=== PATIENT | male | born 1980 | race American Indian/Alaskan Native ===

== ENCOUNTER 2016-12-31 14:24 | Observation (INO) | payer OTHER ==
[2016-12-31 14:48] VITALS: RESP 20
[2016-12-31 15:19] LABS: BASO # 0.1 K/uL (0.0-0.2); BASO % 0.5 % (0.0-2.0); EOS # 0.3 K/uL (0.0-0.7); EOS % 2.1 % (0.0-4.0); HEMATOCRIT 39.3 % (35.0-51.0); LYMPH # 2.2 K/uL (1.0-4.3); LYMPH % 15.5 % (20.0-40.0); MEAN CELL VOLUME 74.4 fL (80.0-94.0); MEAN CORPUSCULAR HEMOGLOBIN 23.4 pg (27.0-31.0); MEAN CORPUSCULAR HGB CONC 31.4 g/dL (33.0-37.0); MEAN PLATELET VOLUME 8.4 fL (7.2-11.7); MONO # 0.8 K/uL (0.0-0.8); MONO % 5.4 % (0.0-10.0); RED CELL DISTRIBUTION WIDTH 14.6 % (11.5-14.5); WHITE BLOOD COUNT 14.4 K/uL (4.8-10.8)
[2016-12-31 15:26] LABS: CHLORIDE 96 mmol/L (98-107)
[2016-12-31 15:27] LABS: POTASSIUM 3.8 mmol/L (3.6-5.2); SODIUM 138 mmol/L (132-148)
[2016-12-31 15:28] LABS: INR 1.1
[2016-12-31 15:29] LABS: ALB/GLOB RATIO 1.2 (1.0-2.1); AST/SGOT 43 U/L (17-59); BILIRUBIN,TOTAL 0.6 mg/dL (0.2-1.3); BLOOD UREA NITROGEN 15 mg/dL (9-20); CARBON DIOXIDE 28 mmol/L (22-30); GFR AFRICAN-AMERICAN > 60
[2016-12-31 15:30] LABS: ALKALINE PHOSPHATASE 69 U/L (38-126); ALT/SGPT 53 U/L (21-72); CALCIUM 9.1 mg/dl (8.6-10.4); GLUCOSE,RANDOM 106 mg/dL (75-110)
--- NOTE | 2016-12-31 15:38 | C.PDOC ---
History Of Present Illness 36-year-old male, presents to the emergency department with complaints of dizziness that is described as room spinning. Patient notes associated "eye twitching" that started this morning. Patient denies fevers, nausea/vomiting, shortness of breath, numbness/weakness, visual change, change in speech, or any other associated symptoms. No other complaints at this time. Time Seen by Provider: 12/31/16 14:40 Chief Complaint (Nursing): Dizziness/Lightheaded History Per: Patient History/Exam Limitations: no limitations Onset/Duration Of Symptoms: Hrs Current Symptoms Are (Timing): Still Present Past Medical History Reviewed: Historical Data, Nursing Documentation, Vital Signs Vital Signs: Last Vital Signs Temp 98.3 F 01/01/17 08:05 Pulse 69 01/01/17 08:05 Resp 20 01/01/17 08:05 BP 109/68 01/01/17 08:05 Pulse Ox 95 01/01/17 08:05 Family History: States: Unknown Family Hx - Social History Hx Tobacco Use: Yes Hx Alcohol Use: No Hx Substance Use: No - Immunization History Hx Tetanus Toxoid Vaccination: No Hx Influenza Vaccination: No Hx Pneumococcal Vaccination: No Review Of Systems Except As Marked, All Systems Reviewed And Found Negative. Constitutional: Negative for: Fever, Chills Cardiovascular: Negative for: Palpitations Respiratory: Negative for: Shortness of Breath Gastrointestinal: Negative for: Nausea, Vomiting Musculoskeletal: Negative for: Neck Pain, Back Pain Skin: Negative for: Rash Neurological: Positive for: Dizziness. Negative for: Weakness, Numbness, Incoordination, Change in Speech, Altered Mental Status Physical Exam - Physical Exam Appears: Non-toxic, No Acute Distress Skin: Warm, Dry, No Rash Head: Atraumatic, Normacephalic Eye(s): bilateral: Normal Inspection, Other (HORIZONTAL NYSTAGMUS) Nose: Normal Oral Mucosa: Moist Lips: Normal Appearing Neck: Normal ROM Cardiovascular: Rhythm Regular Respiratory: Normal Breath Sounds, No Accessory Muscle Use Extremity: Normal ROM Neurological/Psych: Oriented x3, Normal Speech, Normal Cognition, Normal Cranial Nerves, No Cerebellar Signs, Normal Motor, Normal Sensation, Other (neg finger to nose) ED Course And Treatment - Laboratory Results Result Diagrams: 12/31/16 15:12 12/31/16 15:12 O2 Sat by Pulse Oximetry: 98 Medical Decision Making Medical Decision Making: pt with dizziness. suspected peripheral vertigo- labs, meclzine 540: pt initially reported resolving symptoms but upon d/c, pt states again persistent. pt states " feels unwell to go home"ct head added. 645: pt reassessed. again stating feels unwell for d/c. head ct neg. discussed with dr trejo. accepted for obs. Disposition - Disposition Disposition: HOME/ ROUTINE Disposition Time: 17:13 Condition: STABLE - Clinical Impression Clinical Impression: Dizziness - Scribe Statement The provider has reviewed the documentation as recorded by the Jenniferibmorris Teran All medical record entries made by the Jenniferibmorris were at my direction and personally dictated by me. I have reviewed the chart and agree that the record accurately reflects my personal performance of the history, physical exam, medical decision making, and the department course for this patient. I have also personally directed, reviewed, and agree with the discharge instructions and disposition.
--- NOTE | 2016-12-31 16:06 | RAD ---
HISTORY: dizziness/weakness COMPARISON: None available TECHNIQUE: Chest, one view. FINDINGS: Examination limited by habitus and patient obliquity. LUNGS: No focal consolidation. Please note that chest x-ray has limited sensitivity for the detection of pulmonary masses. PLEURA: No significant pleural effusion identified. No definite pneumothorax . CARDIOVASCULAR: Heart size appears top normal. OSSEOUS STRUCTURES: No acute osseous abnormality identified. VISUALIZED UPPER ABDOMEN: Elevation of the right hemidiaphragm. OTHER FINDINGS: None. IMPRESSION: No focal consolidation, significant pleural effusion, or definite pneumothorax identified.
[2016-12-31 16:28] LABS: RBC URINE 1 /hpf (0-3); URINE BACTERIA RARE (<OCC); URINE BILIRUBIN NEGATIVE (NEGATIVE); URINE BLOOD NEGATIVE (NEGATIVE); URINE COLOR Yellow (YELLOW); URINE GLUCOSE (UA) NORMAL (Normal); URINE KETONE NEGATIVE (NEGATIVE); URINE LEUKOCYTE ESTERASE NEG Leu/uL (Negative); URINE PROTEIN NEGATIVE (NEGATIVE); URINE UROBILINOGEN NORMAL mg/dL (0.2-1.0); WBC URINE 1 /hpf (0-5)
[2016-12-31] MEDS ORDERED: Sodium Chloride 0.9% 1,000 ML IV ONE (18:24)
[2016-12-31] MEDS ORDERED: Sodium Chloride 0.9% 1,000 ML ONE (18:29)
--- NOTE | 2016-12-31 18:34 | CT ---
PROCEDURE: CT HEAD WITHOUT CONTRAST. HISTORY: dizziness COMPARISON: None available. TECHNIQUE: Axial computed tomography images were obtained through the head/brain without intravenous contrast. Radiation dose: Total exam DLP = 860 mGy-cm. FINDINGS: HEMORRHAGE: No intracranial hemorrhage. BRAIN: No mass effect or edema. No atrophy or chronic microvascular ischemic changes. VENTRICLES: Unremarkable. No hydrocephalus. CALVARIUM: Unremarkable. PARANASAL SINUSES: Unremarkable as visualized. No significant inflammatory changes. MASTOID AIR CELLS: Unremarkable as visualized. No inflammatory changes. OTHER FINDINGS: None. IMPRESSION: No acute findings
--- NOTE | 2016-12-31 21:10 | CP.PCM.HP ---
<Lina Schulz - Last Filed: 12/31/16 22:11> History of Present Illness - History of Present Illness History of Present Illness: CC: "Dizziness, vomiting" HPI: Pt is a 36M with no prior medical history who presents to the ED with episode of dizziness when he awoke at noon today. 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 Patient went to sleep but still felt dizzy upon awakening and described that the room felt as if it were spinning. He tried drinking water but vomited. Patient states he was able to eat meals without issue the night prior. He denies tinnitus, headache, blurry vision, nasal congestion, sinus pressure, gait disturbance, fever, chills, chest pain, palpitations, diaphoresis , abdominal pain, diarrhea, constipation and urinary symptoms. Patient states after he was given zofran and meclizine in the emergency department he became extremely fatigued and slept for several hours. During examination, patient started to have repeated episodes of yellow colored emesis. PMD: none PMH: none Medications: none Allergies: NKDA Family History: not pertinent Surgical History: denies Social: Admits to smoking 2-3 cigarettes daily for numerous years - will not quantify. Denies alcohol use. Admits to marijuana use. Present on Admission - Present on Admission Any Indicators Present on Admission: No History of DVT/PE: No History of Uncontrolled Diabetes: No Urinary Catheter: No Decubitus Ulcer Present: No Review of Systems - Constitutional Constitutional: absent: Chills, Fever, Headache, Weight Loss, Weakness - EENT Eyes: absent: Blurred Vision, Change in Vision Ears: Dizziness. absent: Decreased Hearing, Tinnitus, Abnormal Hearing, Disequilibrium Nose/Mouth/Throat: absent: Nasal Congestion, Nasal Discharge, Nasal Trauma, Sinus Pain, Sinus Pressure - Cardiovascular Cardiovascular: absent: Chest Pain, Dyspnea, Dyspnea on Exertion, Leg Edema, Palpitations, Syncope - Respiratory Respiratory: absent: Cough, Dyspnea on Exertion, Wheezing - Gastrointestinal Gastrointestinal: Nausea, Vomiting. absent: Abdominal Pain, Coffee Ground Emesis, Constipation, Diarrhea, Hematemesis - Genitourinary Genitourinary: absent: Change in Urinary Stream, Difficulty Urinating - Musculoskeletal Musculoskeletal: absent: Arthralgias, Back Pain - Integumentary Integumentary: absent: New Lesions, Rash - Neurological Neurological: Dizziness. absent: Disequilibrium, Headaches, Syncope, Tingling - Psychiatric Psychiatric: absent: Anxiety Past Patient History - Past Social History Smoking Status: Never Smoked - PSYCHIATRIC Hx Substance Use: No Meds Home Medications: Home Medication List Medication Instructions Recorded Confirmed Type Meclizine [Antivert] 25 mg PO Q6 PRN #30 tab 12/31/16 Rx Allergies/Adverse Reactions: Allergies Allergy/AdvReac Type Severity Reaction Status Date / Time No Known Allergies Allergy Unverified 09/05/13 09:18 Physical Exam - Constitutional Appears: Non-toxic, No Acute Distress - Head Exam Head Exam: ATRAUMATIC, NORMAL INSPECTION, NORMOCEPHALIC - Eye Exam Eye Exam: EOMI, Normal appearance, PERRL - ENT Exam ENT Exam: Mucous Membranes Dry, Normal External Ear Exam, TM's Normal Bilaterally - Neck Exam Neck exam: Positive for: Full Rom, Normal Inspection - Respiratory Exam Respiratory Exam: Clear to Auscultation Bilateral, NORMAL BREATHING PATTERN. absent: Rales, Rhonchi, Wheezes - Cardiovascular Exam Cardiovascular Exam: +S1, +S2. absent: Bradycardia, Tachycardia, Diastolic murmur, Systolic Murmur - GI/Abdominal Exam GI & Abdominal Exam: Normal Bowel Sounds, Soft. absent: Tenderness - Extremities Exam Extremities exam: Positive for: normal inspection, pedal pulses present. Negative for: pedal edema, tenderness - Neurological Exam Neurological exam: Alert, CN II-XII Intact, Oriented x3 - Psychiatric Exam Psychiatric exam: Normal Affect, Normal Mood - Skin Skin Exam: Normal Color, Warm Results - Vital Signs Recent Vital Signs: Last Vital Signs Temp 98.7 F 12/31/16 20:35 Pulse 68 12/31/16 20:35 Resp 20 12/31/16 20:35 BP 124/70 12/31/16 20:35 Pulse Ox 96 12/31/16 20:35 - Labs Result Diagrams: 12/31/16 15:12 12/31/16 15:12 Assessment & Plan - Assessment and Plan (Free Text) Assessment: 1. Gastroenteritis IV fluids @100cc NPO overnight, advance diet as tolerated Zofran 4 mg IVP Q6H PRN for nausea f/u lipase, amylase f/u CMP, magnesium, phosphorus 2. Vertigo likely secondary to gastroenteritis Currently denies symptoms. Will give Meclizine if needed. Monitor 3. Leukocytosis WBC 14.4 CXR- no infiltrates, no active pulmonary disease UA - negative f/u Blood cx Monitor 4. Prophylaxis SCD Pepcid 20 mg po daily - Date & Time Date: 12/31/16 Time: 22:35 <Young Pagan - Last Filed: 01/01/17 06:24> Results - Vital Signs Recent Vital Signs: Last Vital Signs Temp 98.1 F 12/31/16 23:31 Pulse 65 01/01/17 00:55 Resp 20 12/31/16 23:31 BP 123/76 12/31/16 23:31 Pulse Ox 97 12/31/16 23:31 - Labs Result Diagrams: 12/31/16 15:12 12/31/16 15:12 Labs: Laboratory Results - last 24 hr 01/01/17 05:54 Urine Opiates Screen Negative Urine Methadone Screen Negative Ur Barbiturates Screen Negative Ur Phencyclidine Scrn Negative Ur Amphetamines Screen Negative U Benzodiazepines Scrn Negative U Oth Cocaine Metabols Negative Assessment & Plan - Date & Time Date: 01/01/17 (I have seen and examined the patient. I agree with the findings and plan of care as documented by Dr. Schulz. Patient with gastroenteritis. Symptomatic treatment. Also with vertigo. Fall precautions. Meclizine. Monitor for acute changes.) Time: 06:22 Attending/Attestation - Attestation I have personally seen and examined this patient.: Yes I have fully participated in the care of the patient.: Yes I have reviewed all pertinent clinical information: Yes
[2016-12-31] MEDS: Sodium Chloride 0.9% 1,000 ML IV SCH (21:30)
[2017-01-01] MEDS: Sodium Chloride 0.9% 1,000 ML IV SCH ×4 (05:51→22:18)
[2017-01-01 08:41] LABS: BASO # 0.1 K/uL (0.0-0.2); BASO % 0.8 % (0.0-2.0); EOS # 0.2 K/uL (0.0-0.7); EOS % 1.3 % (0.0-4.0); HEMATOCRIT 36.2 % (35.0-51.0); LYMPH # 2.8 K/uL (1.0-4.3); LYMPH % 21.6 % (20.0-40.0); MEAN CORPUSCULAR HEMOGLOBIN 23.3 pg (27.0-31.0); MEAN CORPUSCULAR HGB CONC 31.5 g/dL (33.0-37.0); MEAN PLATELET VOLUME 7.9 fL (7.2-11.7); MONO # 0.9 K/uL (0.0-0.8); MONO % 7.2 % (0.0-10.0); NRBC % 0.1 % (0.0-2.0); RED CELL DISTRIBUTION WIDTH 14.5 % (11.5-14.5)
--- NOTE | 2017-01-01 08:54 | CP.PCM.PN ---
Subjective - Date & Time of Evaluation Date of Evaluation: 01/01/17 Time of Evaluation: 07:40 - Subjective Subjective: PGY1 Medicine Note - Dr. Slater Patient seen and examined at bedside, resting comfortably. No overnight events as per nursing. Patient is NPO secondary to 1 episode of vomiting yesterday 4pm , but has an appetite. Patient complains of fatigue since admission, after being given meclizine and zofran. Patient currently denies any symptoms of dizziness, N/V, diarrhea, constipation. Denies fever, chills, CP, SOB. + urination. Patient states his last BM was prior to admission X2 days ago. Objective - Vital Signs/Intake and Output Vital Signs (last 24 hours): Temp Pulse Resp BP Pulse Ox 98.3 F 69 20 109/68 98 01/01/17 08:05 01/01/17 08:05 01/01/17 08:05 01/01/17 08:05 01/01/17 08:31 Intake and Output: 01/01/17 01/01/17 06:59 18:59 Intake Total 200 Output Total 1 Balance 199 - Medications Medications: Current Medications Famotidine (Pepcid) 20 mg PO DAILY JORGE Sodium Chloride (Sodium Chloride 0.9%) 1,000 mls @ 100 mls/hr IV .Q10H JORGE Last Admin: 01/01/17 05:51 Dose: Not Given Influenza Virus Vaccine (Afluria) 45 mcg IM .ONCE ONE Stop: 01/02/17 10:01 Ondansetron HCl (Zofran Inj) 4 mg IVP Q6H PRN PRN Reason: Nausea/Vomiting Pneumococcal Polyvalent Vaccine (Pneumovax 23 Vaccine) 0.5 ml IM .ONCE ONE Stop: 01/02/17 10:01 - Labs Labs: 01/01/17 08:35 PT 11.9 SECONDS (9.7-12.2) 12/31/16 15:12 INR 1.1 12/31/16 15:12 APTT 34 SECONDS (21-34) 12/31/16 15:12 - Additional Findings Additional findings: - Constitutional Appears: Non-toxic, No Acute Distress - Head Exam Head Exam: ATRAUMATIC, NORMAL INSPECTION, NORMOCEPHALIC - Eye Exam Eye Exam: EOMI, Normal appearance, PERRL - ENT Exam ENT Exam: Mucous Membranes Dry, Normal External Ear Exam, TM's Normal Bilaterally - Neck Exam Neck exam: Positive for: Full Rom, Normal Inspection - Respiratory Exam Respiratory Exam: Clear to Auscultation Bilateral, NORMAL BREATHING PATTERN. absent: Rales, Rhonchi, Wheezes - Cardiovascular Exam Cardiovascular Exam: +S1, +S2. absent: Bradycardia, Tachycardia, Diastolic murmur, Systolic Murmur - GI/Abdominal Exam GI & Abdominal Exam: Normal Bowel Sounds, Soft. absent: Tenderness - Extremities Exam Extremities exam: Positive for: normal inspection, pedal pulses present. Negative for: pedal edema, tenderness - Neurological Exam Neurological exam: Alert, CN II-XII Intact, Oriented x3 - Psychiatric Exam Psychiatric exam: Normal Affect, Normal Mood - Skin Skin Exam: Normal Color, Warm Assessment and Plan - Assessment and Plan (Free Text) Assessment: 1. Gastroenteritis IV fluids @100cc NPO overnight - diet advanced to regular diet Zofran 4 mg IVP Q6H PRN for nausea lipase, amylase - WNL Unremarkable CMP, magnesium, phosphorus 2. Vertigo 01/01: denies symptoms, however "does not feel right" likely secondary to gastroenteritis Currently denies symptoms. Will give Meclizine if needed. Monitor Neuro Consult, Dr. Oconnor, f/u recs f/u MRI brain w/o contrast 01/01- no mass or acute pathology. Nonspecific punctate foci of hyperintense T2 and FLAIR signal in white matter. CT head 12/31 - negative Toxicology + cannabinoids TSH, free T4 normal 3. Leukocytosis WBC 13, decreasing CXR- no infiltrates, no active pulmonary disease UA - negative f/u Blood cx - negative x24hrs Monitor 4. Prophylaxis SCD Pepcid 20 mg po daily
[2017-01-01 08:58] LABS: CHLORIDE 100 mmol/L (98-107)
[2017-01-01 08:59] LABS: SODIUM 138 mmol/L (132-148)
[2017-01-01 09:00] LABS: POTASSIUM 3.8 mmol/L (3.6-5.2)
[2017-01-01 09:01] LABS: AMYLASE 76 U/L (30-110); GFR AFRICAN-AMERICAN > 60
[2017-01-01 09:02] LABS: ALB/GLOB RATIO 1.3 (1.0-2.1); ALKALINE PHOSPHATASE 58 U/L (38-126); ALT/SGPT 42 U/L (21-72); AST/SGOT 36 U/L (17-59); BILIRUBIN,TOTAL 0.5 mg/dL (0.2-1.3); BLOOD UREA NITROGEN 14 mg/dL (9-20); CALCIUM 8.3 mg/dl (8.6-10.4); CARBON DIOXIDE 24 mmol/L (22-30); CHOLESTEROL 185 mg/dL (0-199); GLUCOSE,RANDOM 93 mg/dL (75-110); MAGNESIUM 1.8 mg/dL (1.6-2.3); PHOSPHOROUS 3.5 mg/dL (2.5-4.5)
--- NOTE | 2017-01-01 16:00 | MRI ---
PROCEDURE: MRI BRAIN WITHOUT CONTRAST HISTORY: confusion COMPARISON: Comparison is made to the previous CT dated 12/31/2016. TECHNIQUE: Multiplanar, multisequence MR images of the brain were obtained without intravenous contrast enhancement. FINDINGS: HEMORRHAGE: None DWI: No evidence of an acute or early subacute infarction. BRAIN PARENCHYMA: There are few punctate foci of hyperintense T2 and FLAIR signal seen in the white matter. No atrophy or chronic microvascular ischemic changes. VENTRICLES: There is persistent septum pellucidum in between the lateral ventricles which is a normal variant. No evidence of hydrocephalus. CRANIUM: Unremarkable. ORBITS: Grossly unremarkable. PARANASAL SINUSES/MASTOIDS: Clear VASCULAR SYSTEM: Skull base flow voids intact. OTHER FINDINGS: None. IMPRESSION: No evidence of acute pathology or suspicious mass in the brain. Nonspecific few punctate foci of hyperintense T2 and FLAIR signal in the white matter. Persistent septum pellucidum which is a normal variant.
[2017-01-02 08:10] LABS: BASO # 0.1 K/uL (0.0-0.2); BASO % 0.5 % (0.0-2.0); EOS # 0.4 K/uL (0.0-0.7); HEMATOCRIT 35.7 % (35.0-51.0); LYMPH # 3.7 K/uL (1.0-4.3); LYMPH % 37.1 % (20.0-40.0); MEAN CELL VOLUME 75.4 fL (80.0-94.0); MEAN CORPUSCULAR HEMOGLOBIN 23.6 pg (27.0-31.0); MEAN CORPUSCULAR HGB CONC 31.3 g/dL (33.0-37.0); MONO # 0.6 K/uL (0.0-0.8); MONO % 5.9 % (0.0-10.0); NRBC % 0.1 % (0.0-2.0); RED CELL DISTRIBUTION WIDTH 14.7 % (11.5-14.5)
[2017-01-02 08:11] VITALS: BP 132/78; PULSE 65; TEMP 97.6; O2SAT 97
[2017-01-02 08:24] LABS: CHLORIDE 102 mmol/L (98-107); POTASSIUM 3.7 mmol/L (3.6-5.2); SODIUM 141 mmol/L (132-148)
[2017-01-02 08:26] LABS: BILIRUBIN,TOTAL 0.3 mg/dL (0.2-1.3); GFR AFRICAN-AMERICAN > 60
[2017-01-02 08:27] LABS: ALB/GLOB RATIO 1.4 (1.0-2.1); ALKALINE PHOSPHATASE 57 U/L (38-126); ALT/SGPT 32 U/L (21-72); AST/SGOT 26 U/L (17-59); BLOOD UREA NITROGEN 15 mg/dL (9-20); CALCIUM 8.2 mg/dl (8.6-10.4); CARBON DIOXIDE 24 mmol/L (22-30); GLUCOSE,RANDOM 104 mg/dL (75-110); PHOSPHOROUS 3.6 mg/dL (2.5-4.5); TOTAL PROTEIN 6.7 g/dL (6.3-8.3)
[2017-01-02] MEDS ORDERED: Pneumococcal 23-Valent Vaccine IM ONE (10:00)
[2017-01-02] MEDS ORDERED: Influenza Virus Vaccine 45 mcg/0.5 ml Syr IM ONE (10:00)
[2017-01-02] MEDS: Sodium Chloride 0.9% 1,000 ML IV SCH (11:23)
--- NOTE | 2017-01-02 11:57 | CP.PCM.DIS ---
Provider - Provider Date of Admission: 12/31/16 18:36 Attending physician: Young Pagan MD Primary care physician: None Consults: Neuro- Dr. Yoo (covering Dr. Oconnor) Time Spent in preparation of Discharge (in minutes): 45 Diagnosis - Discharge Diagnosis (1) Gastroenteritis Status: Acute Comment: tolerating PO. No further nausea, vomiting, diarrhea. Stable for discharge (2) Dizziness Status: Acute Comment: CT head- negative. MRI- no mass or acute changes. Hospital Course - Lab Results Lab Results: Micro Results 12/31/16 22:25 Blood Blood Culture - Preliminary NO GROWTH AFTER 24 HOURS 12/31/16 21:50 Blood Blood Culture - Preliminary NO GROWTH AFTER 24 HOURS Most Recent Lab Values WBC 10.0 K/uL (4.8-10.8) 01/02/17 08:00 RBC 4.73 Mil/uL (4.40-5.90) 01/02/17 08:00 Hgb 11.2 g/dL (12.0-18.0) L 01/02/17 08:00 Hct 35.7 % (35.0-51.0) 01/02/17 08:00 MCV 75.4 fL (80.0-94.0) L 01/02/17 08:00 MCH 23.6 pg (27.0-31.0) L 01/02/17 08:00 MCHC 31.3 g/dL (33.0-37.0) L 01/02/17 08:00 RDW 14.7 % (11.5-14.5) H 01/02/17 08:00 Plt Count 292 K/uL (130-400) 01/02/17 08:00 MPV 8.0 fL (7.2-11.7) 01/02/17 08:00 Neut % (Auto) 52.5 % (50.0-75.0) 01/02/17 08:00 Lymph % (Auto) 37.1 % (20.0-40.0) 01/02/17 08:00 [place] % (Auto) 5.9 % (0.0-10.0) 01/02/17 08:00 Eos % (Auto) 4.0 % (0.0-4.0) 01/02/17 08:00 Baso % (Auto) 0.5 % (0.0-2.0) 01/02/17 08:00 Neut # 5.2 K/uL (1.8-7.0) 01/02/17 08:00 Lymph # 3.7 K/uL (1.0-4.3) 01/02/17 08:00 [place] # 0.6 K/uL (0.0-0.8) 01/02/17 08:00 Eos # 0.4 K/uL (0.0-0.7) 01/02/17 08:00 Baso # 0.1 K/uL (0.0-0.2) 01/02/17 08:00 PT 11.9 SECONDS (9.7-12.2) 12/31/16 15:12 INR 1.1 12/31/16 15:12 APTT 34 SECONDS (21-34) 12/31/16 15:12 Sodium 141 mmol/L (132-148) 01/02/17 08:00 Potassium 3.7 mmol/L (3.6-5.2) 01/02/17 08:00 Chloride 102 mmol/L (98-107) 01/02/17 08:00 Carbon Dioxide 24 mmol/L (22-30) 01/02/17 08:00 Anion Gap 19 (10-20) 01/02/17 08:00 BUN 15 mg/dL (9-20) 01/02/17 08:00 Creatinine 0.9 MG/DL (0.8-1.5) 01/02/17 08:00 Est GFR ( Amer) > 60 01/02/17 08:00 Est GFR (Non-Af Amer) > 60 01/02/17 08:00 Random Glucose 104 mg/dL (75-110) 01/02/17 08:00 Hemoglobin A1c 5.2 % (4.2-6.5) 01/01/17 07:03 Calcium 8.2 mg/dl (8.6-10.4) L 01/02/17 08:00 Phosphorus 3.6 mg/dL (2.5-4.5) 01/02/17 08:00 Magnesium 2.0 mg/dL (1.6-2.3) 01/02/17 08:00 Total Bilirubin 0.3 mg/dL (0.2-1.3) 01/02/17 08:00 AST 26 U/L (17-59) 01/02/17 08:00 ALT 32 U/L (21-72) 01/02/17 08:00 Alkaline Phosphatase 57 U/L (38-126) 01/02/17 08:00 Total Protein 6.7 g/dL (6.3-8.3) 01/02/17 08:00 Albumin 3.9 g/dL (3.5-5.0) 01/02/17 08:00 Globulin 2.8 gm/dL (2.2-3.9) 01/02/17 08:00 Albumin/Globulin Ratio 1.4 (1.0-2.1) 01/02/17 08:00 Triglycerides 137 mg/dL (0-149) 01/01/17 08:35 Cholesterol 185 mg/dL (0-199) 01/01/17 08:35 LDL Cholesterol Direct 118 mg/dL (0-129) 01/01/17 08:35 HDL Cholesterol 37 mg/dL (30-70) 01/01/17 08:35 Amylase 76 U/L (30-110) 01/01/17 08:35 Lipase 54 U/L (23-300) 01/01/17 08:35 Thyroxine (T4) 6.20 ug/dL (5.5-11.0) 01/01/17 08:35 TSH 3rd Generation 1.30 mIU/L (0.46-4.68) 01/01/17 08:35 Urine Color Yellow (YELLOW) 12/31/16 16:15 Urine Clarity Clear (Clear) 12/31/16 16:15 Urine pH 5.0 (5.0-8.0) 12/31/16 16:15 Ur Specific [place] 1.024 (1.003-1.030) 12/31/16 16:15 Urine Protein Negative mg/dL (NEGATIVE) 12/31/16 16:15 Urine Glucose (UA) Normal mg/dL (Normal) 12/31/16 16:15 Urine Ketones Negative mg/dL (NEGATIVE) 12/31/16 16:15 Urine Blood Negative (NEGATIVE) 12/31/16 16:15 Urine Nitrate Negative (NEGATIVE) 12/31/16 16:15 Urine Bilirubin Negative (NEGATIVE) 12/31/16 16:15 Urine Urobilinogen Normal mg/dL (0.2-1.0) 12/31/16 16:15 Ur Leukocyte Esterase Neg Kathy/uL (Negative) 12/31/16 16:15 Urine WBC (Auto) 1 /hpf (0-5) 12/31/16 16:15 Urine RBC (Auto) 1 /hpf (0-3) 12/31/16 16:15 Ur Squamous Epith Cells < 1 /hpf (0-5) 12/31/16 16:15 Urine Bacteria Rare (<OCC) 12/31/16 16:15 Urine Opiates Screen Negative (NEGATIVE) 01/01/17 05:54 Urine Methadone Screen Negative (NEGATIVE) 01/01/17 05:54 Ur Barbiturates Screen Negative (NEGATIVE) 01/01/17 05:54 Ur Phencyclidine Scrn Negative (NEGATIVE) 01/01/17 05:54 Ur Amphetamines Screen Negative (NEGATIVE) 01/01/17 05:54 U Benzodiazepines Scrn Negative (NEGATIVE) 01/01/17 05:54 U Oth Cocaine Metabols Negative (NEGATIVE) 01/01/17 05:54 U Cannabinoids Screen Positive (NEGATIVE) 01/01/17 05:54 - Hospital Course Hospital Course: As per admission documentation: Pt is a 36M with no prior medical history who presents to the ED with episode of dizziness when he awoke at noon today. 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 Patient went to sleep but still felt dizzy upon awakening and described that the room felt as if it were spinning. He tried drinking water but vomited. Patient states he was able to eat meals without issue the night prior. He denies tinnitus, headache, blurry vision, nasal congestion, sinus pressure, gait disturbance, fever, chills, chest pain, palpitations, diaphoresis , abdominal pain, diarrhea, constipation and urinary symptoms. Patient states after he was given zofran and meclizine in the emergency department he became extremely fatigued and slept for several hours. During examination, patient started to have repeated episodes of yellow colored emesis. Patient was admitted for treatment for gastroenteritis. Patient was made NPO and given IV fluids. Diet was advanced as tolerated. Patient's vertigo symptoms also improved, CT head was negative, MRI of the head showed no mass or acute pathology. Blood cultures were negative after 24 hrs. After patient was noted to tolerate PO, with no additional nausea vomiting, diarrhea, patient was discharged home. Discharge Exam - Head Exam Head Exam: ATRAUMATIC, NORMAL INSPECTION, NORMOCEPHALIC - Eye Exam Pupil Exam: NORMAL ACCOMODATION, PERRL - ENT Exam ENT Exam: Mucous Membranes Moist - Respiratory Exam Respiratory Exam: Clear to PA & Lateral, NORMAL BREATHING PATTERN, UNREMARKABLE. absent: Rales, Rhonchi, Wheezes - Cardiovascular Exam Cardiovascular Exam: REGULAR RHYTHM, +S1, +S2 - GI/Abdominal Exam GI & Abdominal Exam: Normal Bowel Sounds, Soft, Unremarkable. absent: Distended , Firm, Tenderness - Extremities Exam Extremities exam: normal capillary refill, pedal pulses present - Neurological Exam Neurological exam: Alert, Oriented x3 - Psychiatric Exam Psychiatric exam: Normal Affect, Normal Mood - Skin Skin Exam: Dry, Intact, Normal Color, Warm Discharge Plan - Follow Up Plan Condition: STABLE Disposition: HOME/ ROUTINE Instructions: Vertigo (ED), Dizziness (ED) Additional Instructions: Please discharge patient home, as per Dr. Slater. Patient is to followup with his PMD in 1 week. If symptoms worsen, patient is to return to the hospital for further evaluation and treatment. Referrals: [facility] [Outside] [facility] at [facility] [Outside] Brendon Aguila MD [Staff Provider] -
--- NOTE | 2017-01-03 09:09 | CARD ---
APPROVED REPORT EKG Measurement Heart [id number] <Conclusion> Sinus bradycardia with 1st degree AV block Otherwise normal ECG
== END 2017-01-02 15:30 | disposition home or self-care (01) ==
LOC: C.ER 14:24 → UNDOADMOB 18:36 → C.9E 18:36 → C.9OBSV 18:36 → C.3T 19:52
PROVIDERS: ADMIT Family Medicine; ATTEND Family Medicine
DX: K52.9 Noninfective gastroenteritis and colitis, unspecified (principal); R42 Dizziness and giddiness; D72.829 Elevated white blood cell count, unspecified; F12.10 Cannabis abuse, uncomplicated; F17.210 Nicotine dependence, cigarettes, uncomplicated

== ENCOUNTER 2017-01-02 21:48 | Emergency (ER) | payer SELFPAY ==
[2017-01-02 22:08] VITALS: RESP 18; O2SAT 98
--- NOTE | 2017-01-02 22:50 | C.PDOC ---
History Of Present Illness A 36 year old male presents to the emergency room with complaints of feeling "weird" today. Patient was admitted to the hospital yesterday and discharged today for similar symptoms after extensive cannabis abuse. Patient denies any fever, nausea, vomiting, diarrhea, or any other complaints. Patient had a complete normal workup in the hospital yesterday, including CT, MRI, and blood work. Time Seen by Provider: 01/02/17 22:38 Chief Complaint (Nursing): Medical Clearance History Per: Patient History/Exam Limitations: no limitations Onset/Duration Of Symptoms: Hrs Current Symptoms Are (Timing): Still Present Severity: Mild Recent travel outside of the [place]: No Past Medical History Reviewed: Historical Data, Nursing Documentation, Vital Signs Vital Signs: Last Vital Signs Temp 97.7 F 01/02/17 23:15 Pulse 69 01/02/17 23:15 Resp 18 01/02/17 23:15 BP 120/73 01/02/17 23:15 Pulse Ox 98 01/02/17 23:15 Family History: States: Unknown Family Hx - Social History Hx Tobacco Use: Yes Hx Alcohol Use: No (DENIED) Hx Substance Use: No (DENIED) - Immunization History Hx Tetanus Toxoid Vaccination: No Hx Influenza Vaccination: No Hx Pneumococcal Vaccination: No Review Of Systems Constitutional: Negative for: Fever Gastrointestinal: Negative for: Nausea, Vomiting, Diarrhea Psych: Positive for: Other (Feeling "weird") Physical Exam - Physical Exam Appears: Well, Non-toxic, No Acute Distress, Combative (Argumentative) Skin: Normal Color, Warm Head: Atraumatic, Normacephalic Eye(s): bilateral: Normal Inspection Neck: Normal ROM, Supple Cardiovascular: Rhythm Regular Respiratory: Normal Breath Sounds, No Rales, No Rhonchi, No Wheezing Gastrointestinal/Abdominal: Soft, No Tenderness Extremity: Normal ROM, No Tenderness Neurological/Psych: Oriented x3, Normal Speech ED Course And Treatment O2 Sat by Pulse Oximetry: 98 Medical Decision Making Medical Decision Making: anxiety- normal w/u including MRI of brain TODAY, labs only sig for persistent Cannabis use- pt feel anxious and concerned now Trialed Xanax and reassured. opt f/u with Neuro Patient received 0.25 Xanax. Patient was argumentative. Disposition Doctor Will See Patient In The: Office Counseled Patient/Family Regarding: Studies Performed, Diagnosis - Disposition Referrals: [facility] [Outside] Jose Raul Yoo MD [Staff Provider] - Siva Oconnor MD [Staff Provider] - Disposition: HOME/ ROUTINE Disposition Time: 22:50 Condition: GOOD Additional Instructions: Trial Xanax 0.25 mg every 6 hours as needed Follow-up with your Neurologist as needed, or return to our ED or Clinic as needed. Prescriptions: ALPRAZolam [Xanax] 0.25 mg PO Q6H PRN #6 tab PRN Reason: Anxiety Instructions: Lightheadedness (ED) - Clinical Impression Clinical Impression: Dizziness - Scribe Statement The provider has reviewed the documentation as recorded by the Scribe Jeremi Mccracken All medical record entries made by the Scribe were at my direction and personally dictated by me. I have reviewed the chart and agree that the record accurately reflects my personal performance of the history, physical exam, medical decision making, and the department course for this patient. I have also personally directed, reviewed, and agree with the discharge instructions and disposition.
[2017-01-02 23:15] VITALS: BP 120/73; PULSE 69; TEMP 97.7
== END 2017-01-02 23:18 | disposition home or self-care (01) ==
LOC: C.ER 21:48
DX: R42 Dizziness and giddiness (principal)

== ENCOUNTER 2018-01-07 08:02 | Emergency (ER) | payer MEDICAID, OTHER ==
[2018-01-07 08:08] VITALS: PULSE 59; O2SAT 98; BMI 31.0
--- NOTE | 2018-01-07 08:33 | C.PDOC ---
History Of Present Illness 37 year old male presents to the ED c/o bilateral ear clogging and fullness associated with nasal congestion for the past 1 day. Patient reports he took Mucinex with no relief. Patient is also c/o a hard bowel movement today. Patient denies fever, hearing loss, trauma, injury, fall, abdominal pain, bloating, nausea, vomit. BL EAR CLOGGING/FULLNESS X 1 DAY. +NASAL VERO. NO FEVER, HEARING LOSS, TRAUMA. NO RELIEF W MUCINEX ALSO CO HARD BM TODAY. NO ABD PAIN, BLOATING, NV EXAM NAD HEENT B/L TMS CLEAR; THROAT CLEAR; +CLEAR RHINORRHEA REMAINDER NEG Time Seen by Provider: 01/07/18 08:28 Chief Complaint (Nursing): ENT Problem History Per: Patient History/Exam Limitations: no limitations Onset/Duration Of Symptoms: Days Current Symptoms Are (Timing): Still Present Severity: None Recent travel outside of the [place]: No Additional History Per: Patient Past Medical History Reviewed: Historical Data, Nursing Documentation, Vital Signs Vital Signs: Last Vital Signs Temp 98.4 F 01/07/18 08:06 Pulse 59 L 01/07/18 08:06 Resp 18 01/07/18 08:06 BP 118/56 L 01/07/18 08:06 Pulse Ox 98 01/07/18 09:04 - Medical History PMH: No Chronic Diseases Surgical History: No Surg Hx Family History: States: Unknown Family Hx - Social History Hx Tobacco Use: Yes Hx Alcohol Use: No Hx Substance Use: No - Immunization History Hx Tetanus Toxoid Vaccination: No Hx Influenza Vaccination: No Hx Pneumococcal Vaccination: No Review Of Systems Constitutional: Negative for: Fever, Chills ENT: Positive for: Ear Discharge. Negative for: Nose Discharge Respiratory: Negative for: Cough, Shortness of Breath Gastrointestinal: Positive for: Constipation. Negative for: Nausea, Vomiting, Abdominal Pain Skin: Negative for: Rash Neurological: Negative for: Weakness, Numbness Physical Exam - Physical Exam Appears: Non-toxic, No Acute Distress Skin: Normal Color, Warm, Dry Head: Atraumatic, Normacephalic Eye(s): bilateral: Normal Inspection Ear(s): Bilateral: Normal Nose: Discharge (clear) Oral Mucosa: Moist Throat: Normal, No Erythema, No Exudate Chest: Symmetrical Cardiovascular: Rhythm Regular, No Murmur Respiratory: Normal Breath Sounds, No Rales, No Rhonchi, No Wheezing Gastrointestinal/Abdominal: Soft, No Tenderness, No Guarding, No Rebound Extremity: Normal ROM, No Tenderness, No Swelling Neurological/Psych: Oriented x3 Disoriented To: Person ED Course And Treatment O2 Sat by Pulse Oximetry: 98 (On RA) Pulse Ox Interpretation: Normal Disposition Counseled Patient/Family Regarding: Diagnosis, Need For Followup, Rx Given - Disposition [facility] [Outside] Disposition: HOME/ ROUTINE Disposition Time: 09:02 Condition: GOOD Additional Instructions: FOLLOW UP WITH CLINIC IF PERSISTENT SYMPTOMS Prescriptions: Fluticasone Propionate [Flonase] 2 spr ALYSA DAILY #1 bottle Pseudoephedrine HCl [Sudafed 24 Hour] 240 mg PO DAILY PRN #1 unit PRN Reason: Sinus Symptoms Instructions: Constipation, Adult (DC), Viral Upper Respiratory Infection, Adult (DC) Forms: [facility] (Moldovan) - Clinical Impression Clinical Impression: Rhinorrhea, Constipation - Scribe Statement The provider has reviewed the documentation as recorded by the Scribmorris Helm All medical record entries made by the Scribe were at my direction and personally dictated by me. I have reviewed the chart and agree that the record accurately reflects my personal performance of the history, physical exam, medical decision making, and the department course for this patient. I have also personally directed, reviewed, and agree with the discharge instructions and disposition.
[2018-01-07 09:38] VITALS: BP 116/75; RESP 16; TEMP 97.8
== END 2018-01-07 09:33 | disposition home or self-care (01) ==
LOC: C.ER 08:02
DX: K59.00 Constipation, unspecified (principal); J34.89 Other specified disorders of nose and nasal sinuses; Z72.0 Tobacco use

== ENCOUNTER 2018-06-03 14:25 | Emergency (ER) | payer OTHER ==
[2018-06-03 14:26] VITALS: BMI 31.0
[2018-06-03 14:38] VITALS: RESP 18
--- NOTE | 2018-06-03 15:33 | C.PDOC ---
History Of Present Illness 38 y/o male presents to ED for evaluation of chest flutters, anxiety, not being able to pop his ears. Notes being seen by ENT specialist without significant findings. Denies cough, shortness of breath, or fever. He admits to smoking marijuana today. Time Seen by Provider: 06/03/18 14:43 Chief Complaint (Nursing): Medical Clearance History Per: Patient History/Exam Limitations: no limitations Past Medical History Reviewed: Historical Data, Nursing Documentation, Vital Signs Vital Signs: Last Vital Signs Temp 98 F 06/03/18 15:41 Pulse 69 06/03/18 15:41 Resp 18 06/03/18 15:41 BP 126/73 06/03/18 15:41 Pulse Ox 100 06/03/18 16:41 Family History: States: Unknown Family Hx - Social History Hx Tobacco Use: Yes Hx Alcohol Use: No Hx Substance Use: No - Immunization History Hx Tetanus Toxoid Vaccination: No Hx Influenza Vaccination: No Hx Pneumococcal Vaccination: No Review Of Systems Except As Marked, All Systems Reviewed And Found Negative. Constitutional: Negative for: Fever, Chills Cardiovascular: Positive for: Palpitations Respiratory: Negative for: Cough, Shortness of Breath Psych: Positive for: Anxiety Physical Exam - Physical Exam Appears: Non-toxic, No Acute Distress, Other (morbidly obese, bizarre behavior) Skin: Normal Color, Warm, Dry Head: Atraumatic, Normacephalic Eye(s): bilateral: Normal Inspection, Other (intermittently tearful) Oral Mucosa: Moist Neck: Normal ROM, Supple Cardiovascular: Rhythm Regular, No Murmur Respiratory: Normal Breath Sounds, No Rales, No Rhonchi, No Wheezing Gastrointestinal/Abdominal: Soft, No Tenderness Extremity: Normal ROM Neurological/Psych: Oriented x3, Normal Speech ED Course And Treatment O2 Sat by Pulse Oximetry: 100 Medical Decision Making Medical Decision Making: chronic cannibis abuse still smoking normal ENT exam clear lungs normal VS's outpatient f/u Disposition Doctor Will See Patient In The: Office Counseled Patient/Family Regarding: Studies Performed, Diagnosis - Disposition Referrals: [facility] [Outside] [facility] [Outside] [facility] [Outside] Disposition: HOME/ ROUTINE Disposition Time: 15:32 Condition: GOOD Additional Instructions: curb smoking cannabis and cigarettes as able outpatient follow-up as needed. Instructions: Smoking: Not Just Harmful to Your Lungs and Heart Forms: General Discharge Instructions, [facility] (Slovenian) - Clinical Impression Clinical Impression: Medical assessment - Scribe Statement The provider has reviewed the documentation as recorded by the Scribe KP All medical record entries made by the Scribe were at my direction and personally dictated by me. I have reviewed the chart and agree that the record accurately reflects my personal performance of the history, physical exam, medical decision making, and the department course for this patient. I have also personally directed, reviewed, and agree with the discharge instructions and disposition.
[2018-06-03 15:43] VITALS: BP 126/73; PULSE 69; TEMP 98
[2018-06-03 16:41] VITALS: O2SAT 100
--- NOTE | 2018-06-06 08:10 | CARD ---
APPROVED REPORT Date of service: 06/03/2018 EKG Measurement Heart [id number] <Conclusion> Normal sinus rhythm Normal ECG
== END 2018-06-03 15:43 | disposition home or self-care (01) ==
LOC: C.ER 14:25
DX: Z04.8 Encounter for examination and observation for other specified reasons (principal)

== ENCOUNTER 2019-03-11 13:45 | Emergency (ER) | payer OTHER ==
[2019-03-11 13:45] VITALS: BMI 31.0
[2019-03-11 14:11] VITALS: BP 155/69; PULSE 74; TEMP 98.5; O2SAT 98
--- NOTE | 2019-03-11 14:21 | C.PDOC ---
History Of Present Illness 38 y/o male pt presents to the ER c/o needing to "pop" his ears. Pt reports this has been occurring for over a year. Pt states he has seen 2 different ENT doctors who gave them abx then ear drops with no relief. Abx caused pt to have heart burn later on. Pt was seen yesterday by PMD and his exam was normal. Pt denies any ear pain, associated sx or complaints at this time. Time Seen by Provider: 03/11/19 14:04 Chief Complaint (Nursing): ENT Problem History Per: Patient History/Exam Limitations: None Onset/Duration Of Symptoms: Days Current Symptoms Are (Timing): Still Present Past Medical History Reviewed: Historical Data, Nursing Documentation, Vital Signs Vital Signs: Last Vital Signs Temp 98.5 F 03/11/19 13:54 Pulse 74 03/11/19 13:54 Resp 16 03/11/19 13:54 BP 155/69 H 03/11/19 13:54 Pulse Ox 98 03/11/19 13:54 Primary Care Provider: Allen Beard Family History: States: Unknown Family Hx - Social History Hx Tobacco Use: Yes Hx Alcohol Use: No Hx Substance Use: No - Immunization History Hx Tetanus Toxoid Vaccination: No Hx Influenza Vaccination: No Hx Pneumococcal Vaccination: No Review Of Systems Except As Marked, All Systems Reviewed And Found Negative. Constitutional: Negative for: Fever, Chills ENT: Positive for: Other (needing to pop ears ). Negative for: Ear Pain, Ear Discharge Physical Exam - Physical Exam Appears: Non-toxic, No Acute Distress Skin: Warm, Dry Head: Normacephalic Ear(s): Bilateral: Normal Nose: Normal Oral Mucosa: Moist Throat: Normal, No Erythema, No Exudate Neurological/Psych: Oriented x3, Normal Speech ED Course And Treatment O2 Sat by Pulse Oximetry: 98 (RA) Pulse Ox Interpretation: Normal Progress Note: Pt is stable for d/c Disposition - Disposition Disposition: HOME/ ROUTINE Disposition Time: 14:19 Condition: STABLE Additional Instructions: Follow up with your PMD and ENT within 2-3 days. Return to ED if feel worse. Prescriptions: Famotidine [Pepcid] 20 mg PO BID #60 tab Instructions: Acid Reflux (Gastroesophageal Reflux Disease), Adult (DC) Forms: [employer] (Persian) - Clinical Impression Clinical Impression: GERD (gastroesophageal reflux disease), Clogged ear - PA / CARPENTER/LABOR / Resident Statement MD/ has reviewed & agrees with the documentation as recorded. - Scribe Statement The provider has reviewed the documentation as recorded by the Rasheeda Dempsey Do All medical record entries made by the Rasheeda were at my direction and personally dictated by me. I have reviewed the chart and agree that the record accurately reflects my personal performance of the history, physical exam, medical decision making, and the department course for this patient. I have also personally directed, reviewed, and agree with the discharge instructions and disposition.
[2019-03-11 14:27] VITALS: RESP 20
== END 2019-03-11 14:26 | disposition home or self-care (01) ==
LOC: C.ER 13:45
DX: K21.9 Gastro-esophageal reflux disease without esophagitis (principal); H93.8X9 Other specified disorders of ear, unspecified ear